=== PATIENT | male | born 1965 | race Two or more races ===

== ENCOUNTER 2019-06-14 01:13 | Emergency (ER) | payer BC ==
[~2019-06-14] VITALS: Ht 177.8 cm; Wt 98.9 kg
[2019-06-14 01:40] VITALS: BP 145/98
[2019-06-14] MEDS ORDERED: TRIAMCINOLONE 40MG/ML 1ML VIAL IX ONE (03:00)
[2019-06-14] MEDS ORDERED: COLCHICINE 0.6 MG CAP PO ONE (03:30)
== END 2019-06-14 03:51 | disposition home or self-care (01) ==
LOC: ER 01:21
DX: M10.022 Idiopathic gout, left elbow (principal)
CPT/HCPCS: 20605; 36415; 73080; 84550; 99284; J3301; 20552